=== PATIENT | female | born 1995 | race African-American/Black ===

== ENCOUNTER 2017-07-02 00:26 | Day surgery (SDC) | payer OTHER, SELFPAY ==
[2017-07-02 01:32] LABS: Bilirubin Negative (Negative); Blood, Urine Negative (Negative); Clarity CLEAR (Clear); Glucose, Urine (Dipstick) Negative (Negative); Leukocyte Negative (Negative); Nitrite Negative (Negative); Protein, Urine (Dipstick) Negative (Neg-Trace); Specific Gravity, Urine 1.008 (1.002-1.036)
[2017-07-02] MEDS ORDERED: Lactated Ringer's 1,000 ML IV SCH (01:45)
--- NOTE | 2017-07-02 01:55 | PDOC.EVN ---
Event Note - Event Note Event Note: L&D Triage Patient here for lower pelvic cramping at 22 weeks María COLÓN in [place], [place] HPI: 22 yo AA at 22 weeks by stated EDC of 10/31/17, maría COLÓN in [place] and is in process of moving here. She called to L&D for pelvic pain and was instructed to come here for eval. No ROM, no VB, no trauma, no recent sex. review of Systems: Complete ROS done and as per HPI Past med: PIH with first reg Past Surg: CS x1 Allergies: none Social: neg PHYSICAL: 130/82, 80, afebrile NAD No VB No evidence LOF FHTs 140s on monitor spot check OB sono in process now Labs pending Assessment and Plan: Suspect round lig pain. No evidence PTL or PCD at this time but sono pending for CHRISTIANO eval. We will get labs (CBC, CMP, urine) for now Sono in process If all ok, ok for outpatient care
--- NOTE | 2017-07-02 02:08 | PDOC.EVN ---
Event Note - Event Note Event Note: Present during sono: transabd sono reveals a cervix of about 4.2cm without evidence of funneling. UA is clear. Some of this discomfort may be round ligament and/or adhesions from prior CS. No evidence PTL. Doubt renal calculi as no blood in urine. CBC and CMP pending. IVF bolus pending.
[2017-07-02 03:02] LABS: #Basophils 0.1 thou/uL (0.0-0.2); #Eosinphils 0.3 thou/uL (0.0-0.7); #Lymphocytes 3.6 thou/uL (1.20-3.40); #Monocytes 1.1 thou/uL (0.11-0.59); #Neutrophils 9.8 thou/uL (1.40-6.50); %Basophils 0.5 % (0.0-1.0); %Eosinophils 2.2 % (0.0-10.0); %Lymphocytes 24.1 % (21.0-51.0); %Monocytes 7.3 % (0.0-10.0); %Neutrophils 65.9 % (42.0-75.0); Hemoglobin 11.3 g/dL (12.0-16.0); Mean Corpuscular HGB CONC 33.7 g/dL (32.0-36.0); Mean Corpuscular Hemoglobin 26.8 pg (27.0-31.0); Mean Corpuscular Volume 79.4 fl (81.0-99.0); Mean Platelet Volume 10.5 fL (7.4-10.4); Platelet Count 167 thou/uL (130-400); RBC Distribution Width 15.4 % (11.5-14.5); Red Blood Cell (RBC) Count 4.23 mill/uL (4.20-5.40); White Blood Cell (WBC) Count 14.8 thou/uL (4.8-10.8)
[2017-07-02 03:21] LABS: ALT (SGPT) 11 U/L (8-55); AST (SGOT) 13 U/L (5-34); Albumin 3.5 g/dL (3.5-5.0); Alkaline Phosphatase 107 U/L (40-150); Anion Gap 12 mmol/L (10-20); BUN (Urea Nitrogen) 5 mg/dL (7.0-18.7); Bilirubin, Total Less than 0.2 mg/dL (0.2-1.2); Calc. Creatinine Clearance 0 mL/min (70-130); Calcium 9.2 mg/dL (7.8-10.44); Carbon Dioxide 22 mmol/L (22-29); Chloride 106 mmol/L (98-107); Estimated GFR-MDRD Greater than 90; Globulin 3.4 g/dL (2.4-3.5); Glucose 105 mg/dL (70-105); Potassium 4.2 mmol/L (3.5-5.1); Protein, Total 6.9 g/dL (6.0-8.3); Sodium 136 mmol/L (136-145)
--- NOTE | 2017-07-02 03:42 | PDOC.EVN ---
Event Note - Event Note Event Note: Spiral CT note: Patient's labs have returned: CMP ok, CBC with isolated WBC of 14-15. I have evaluated her again at bedside...still states she has abdominal pain. To r/o appy, I will order spiral CT. I explained this to the patient. She understands.
--- NOTE | 2017-07-02 09:06 | ULT ---
PRELIMINARY REPORT/[facility]/EMERGENCY AFTER HOURS PROCEDURE: EXAM: US Transabd After First Trimester First Gest CLINICAL HISTORY: 22 years old, female; Pain; complicated by abdominal or pelvic pain; Lower; Second trimeste r; Gestational age or lmp: 22w5d; TECHNIQUE: Real-time ultrasound of the transabd after first trimester first gest with image documentat ion. COMPARISON: No relevant prior studies available. FINDINGS: A single intrauterine is present in breech presentation with estimated gestational age of 2 2 weeks 5 days. heart rate is measured at 153 bpm. The placenta is anterior, grade 1. The cervi x measures 4.8 cm. AMENA measures 12.7 cm. Nose/lips not well visualized. imaging is unremarkable . IMPRESSION Single intrauterine with estimated gestational age of 22 weeks 5 days. Thank you for allowing us to participate in the care of your patient. Dictated and Authenticated by: Fan Medellin MD 07/02/2017 2:30 AM Central Time ([place]) FINAL REPORT BY DR. CARTER EMERGENCY AFTER HOURS STUDY ULTRASOUND OBSTETRICAL COMPLETE: HISTORY: 22-year-old female experiencing pelvic and abdominal pain. FINDINGS: number: Almanzar. lie: Breech. Maternal cervix: 5 cm in length and closed. Placenta: Anterior. No placenta previa. No abruptio placentae. Amniotic fluid volume: AMENA = 12.5 cm. heart rate: 153 bpm The following anatomy is visualized, with no evidence of anomalies: Head, lateral ventricles, cerebellum, spine, upper limbs, lower limbs, four chamber heart, umbilical cord, cord insertion, stomach, kidneys, and bladder. The nose and lips are not well visualized. biometry: Head circumference (HC): 20.5 cm 22w 4d Biparietal diameter (BPD): 5.3 cm 22w 0d Abdominal circumference (AC): 18.9 cm 23w 5d Femur length (FL): 4.1 cm 23w 1d Average ultrasound age (AUA): 22w 5d Estimated date of delivery (NUNO): 10/31/2017 Last menstrual period (LMP): 01/24/2017 Gestational age by LMP: 22w 5d Estimated weight (EFW): 578 g +/- 86 g (1 lb 4 oz, +/- 3 oz) This report agrees with the preliminary report by Lupe. IMPRESSION: 1. Live second trimester intrauterine gestation. 2. Estimated gestational age of 22 weeks, 5 days. 3. Breech lie. 4. No anatomical abnormalities identified. 5. No evidence of complications. jn [] POS: CET
--- NOTE | 2017-07-02 09:44 | MRI ---
PRELIMINARY REPORT/[facility]/EMERGENCY AFTER HOURS PROCEDURE: EXAM: MR Abdomen Without Intravenous Contrast EXAM DATE/TIME: 07/02/2017 5:25 AM CLINICAL HISTORY: 22 years old, female; Pain; Abdominal pain; Acute; Additional info: R/O appy TECHNIQUE: Multiplanar magnetic resonance images of the abdomen without intravenous contrast. COMPARISON: No relevant prior studies available. FINDINGS: There is a mid term intrauterine gestation. The fetus is in the breech position. The placenta is anterior in position. No obvious or placental abnormalities. The maternal intestines are displaced by the gravid uterus. The ileocolic junction is identified. The appendix is identified and normal in caliber. No periappendiceal inflammatory changes. The visualized liver is normal in morphology and signal characteristics. No evidence abnormal signal or contrast enhancement. No evidence of biliary ductal dilatation. The gallbladder is unremarkable. The kidneys are normal in morphology and signal characteristics. No evidence of hydronephrosis. The soft tissues and bones of the body wall are normal in morphology and signal characteristics. IMPRESSION: No evidence for appendicitis. Thank you for allowing us to participate in the care of your patient. Dictated and Authenticated by: Mukund Hoffmann MD 07/02/2017 7:12 AM Central Time ([place]) FINAL REPORT MRI ABDOMEN: Date: 07/02/17 FINDINGS/IMPRESSION: I agree with the preliminary report provided by Lupe. Appendix is identified within the right lower q uadrant measuring up to 5.0 mm. No large amount of fluid is seen within the right lower quadrant to s uggest periappendiceal inflammatory change. There is a single liver intrauterine gestation in breech presentation. Placenta is anterior in location. Cervical length is 4.7 cm. The late term gestation do es displace multiple loops of bowel from the abdominal cavity. Visualized aspects of the bladder, rec len, and perirectal soft tissues are unremarkable. POS: TPC
--- NOTE | 2017-07-02 11:53 | PRG ---
DATE OF SERVICE: 07/02/2017 PRIMARY OB: Out of town; however the patient is planning on transferring care to her physician and determine here in the community. HISTORY OF PRESENT ILLNESS: The patient was admitted, evaluated here in labor and delivery for abdominal pain. She has been evaluated for concerns of appendicitis by MRI, which did not show any obvious signs can supporting appendicitis. The patient remains afebrile. Her white count that was mildly elevated, there is no left shift and on reevaluation and discussion of patient' s history. Her pain was most consistent with ligament pain, perhaps more severe than usual. PHYSICAL EXAMINATION: VITAL SIGNS: Currently, blood pressure 102/60, heart rate of 83, respiratory rate 18, and temperature 97.7. The patient is primarily tender in the left lower quadrant at this time and again most exacerbated with deviation of the uterus. Given a thorough evaluation and workup with no significant findings at this time , we have decided to discharge the patient Aaron Duckworth to home here in the community. She will be staying here for the foreseeable future. She is being given Tylenol No. 3 one to two tablets p.o. q.6 hours p.r.n. #15 for pain with instructions not to take regular Tylenol in conjunction with this, but perhaps to alternate her. The patient has also been counseled to find a primary CERTIFIED FLIGHT INSTRUCTOR here in the community for outpatient evaluation for followup here in the next week or so. The patient has also been given instructions to returned back to the emergency room should she experience fever, increasing pain , nausea, vomiting otherwise worsening symptoms. The patient is comfortable with this plan and has expressed understanding. VOLODYMYR
== END 2017-07-02 11:42 | disposition home or self-care (01) ==
LOC: ERS 00:26 → SDC/OP 01:42 → L&D/OP 11:42
PROVIDERS: ATTEND Obstetrics & Gynecology
DX: O99.89 Other specified diseases and conditions complicating pregnancy, childbirth and the puerperium (principal); R10.9 Unspecified abdominal pain; R10.2 Pelvic and perineal pain; Z3A.22 22 weeks gestation of pregnancy; Z98.891 History of uterine scar from previous surgery
CPT/HCPCS: 74181; 76805; 80053; 81003; 85025; 87086

== ENCOUNTER 2017-09-10 14:45 | Day surgery (SDC) | payer BC, MEDICAID ==
[2017-09-10 15:29] VITALS: BP 124/69; TEMP 99.5
--- NOTE | 2017-09-10 15:38 | PDOC.LDHP ---
Labor and Delivery H&P HPI: This is a 22yo @ 32.5 by LMP per patient presents for Elevated BP. She was seen at [facility] for her initial OB visit and was found to have SBP 140's so was sent over the [facility] for Pre-eclampsia workup. Yesterday she had an episode of dizziness and vision changes, however asymptomatic today. Due date: 10/31/17 Dating criteria: last menstrual period, other (Per patient as there are no records at this time to confirm this) Grav: 2 Para: 1 OB History Details: LTCS 2/2 Non-reassuring FHT's and failure to descend. Had maternal chorioamnionitis. Current complications: none Past Medical History: Asthma on albuterol PRN. Never been hospitalized in the past. Sickle cell trait Hx of GDM. Current medications: pre-mary vitamins Previous surgical history: low tranverse CS, other (ACL repair, umbilical hernia repair, tonsillectomy, LTCS) Social history: none - Physical Exam Vital signs reviewed and normal: yes General: NAD, resting Heart: RRR Lungs: nonlabored breathing Abdomen: NTTP Extremeties: no edema - OB Labs Blood type: A - Plan -: A/P: 1) Elevated Blood Pressure in clinic with concern for Pre-eclampsia - Will observe in L&D. F/u with labs of Urine Pr:Cr ratio, CBC, CMP, BPP, NST, AMENA and Growth. 2) IUP - Will need to request records from [facility]. 3) Hx of LTCS 4) GBS unknown 5) Asthma -Albuterol PRN 6) Sickle Cell Trait 7) Hx of Gestational DM and possibly HTN in . <Melissa Clark - Last Filed: 09/10/17 15:35> <Saroj Mina - Last Filed: 09/10/17 16:53> Allergies/Adverse Reactions: Allergies Allergy/AdvReac Type Severity Reaction Status Date / Time No Known Allergies Allergy Verified 07/02/17 06:25 Attending Addendum - Attending Addendum Date/Time: 09/10/17 1652 I personally evaluated the patient and discussed the management with Dr. PARK. I agree with and repeated the History, Examination, Assessment and Plan documented above with any addition or exceptions noted below. No headache/vision changes. Had what sounds like a migraine yesterday that resolved. No RUQ/LUBA pain. H/o gHTN last , unsure if converted to preE. Will await workup, so far reassuring status. Disposition pending labs and serial BP monitoring. Handoff to be given to Dr. Alston. <Saroj Mina - Last Filed: 09/10/17 16:53>
[2017-09-10 15:39] VITALS: BMI 37.9
[2017-09-10 16:05] LABS: Hemoglobin 11.5 g/dL (12.0-16.0); Mean Corpuscular HGB CONC 33.7 g/dL (32.0-36.0); Mean Corpuscular Hemoglobin 25.3 pg (27.0-31.0); Mean Platelet Volume 11.5 fL (7.4-10.4); Platelet Count 149 thou/uL (130-400); Red Blood Cell (RBC) Count 4.54 mill/uL (4.20-5.40); White Blood Cell (WBC) Count 13.3 thou/uL (4.8-10.8)
--- NOTE | 2017-09-10 16:06 | ULT ---
ULTRASOUND BIOPHYSICAL PROFILE: 09/10/17 HISTORY: 22-year-old female in third trimester of with pre-eclampsia. FINDINGS: breathin tone: 2 movement: 2 Amniotic fluid volume: 2 IMPRESSION: Normal biophysical profile score of 8/8, excluding the non-stress test. jn [] POS: TPC
[2017-09-10 16:22] LABS: MDiff Complete? YES
[2017-09-10 16:23] LABS: Anisocytosis SLIGHT = 6-15 cells (100X) (0-5/hpf); Band 4 % (5-11); Eosinophils 2 % (0-10); Hypochromia SLIGHT = 6-15 cells (100X) (0-5/hpf); Large Platelets SLIGHT; Lymphocytes 9 % (21-51); Microcytosis SLIGHT = 6-15 cells (100X) (0-5/hpf); Monocytes 7 % (0-10); Neutrophil 76 % (42-75); Ovalocytes SLIGHT = 2-5 cells (100X) (0-1/hpf); PLT Morphology Comment Appears Adequate; Polychromasia SLIGHT = 2-3 cells (100X) (0-2/hpf); Reactive Lymphocytes 2 % (0-10); Target Cells SLIGHT = 2-5 cells (100X) (0-1/hpf)
[2017-09-10 16:24] LABS: ALT (SGPT) 7 U/L (8-55); AST (SGOT) 15 U/L (5-34); Albumin 3.3 g/dL (3.5-5.0); Alkaline Phosphatase 139 U/L (40-150); Anion Gap 10 mmol/L (10-20); BUN (Urea Nitrogen) 6 mg/dL (7.0-18.7); Bilirubin, Total 0.2 mg/dL (0.2-1.2); Calc. Creatinine Clearance 215 mL/min (70-130); Calcium 9.3 mg/dL (7.8-10.44); Carbon Dioxide 21 mmol/L (22-29); Chloride 107 mmol/L (98-107); Estimated GFR-MDRD Greater than 90; Globulin 3.9 g/dL (2.4-3.5); Glucose 80 mg/dL (70-105); Potassium 3.9 mmol/L (3.5-5.1); Protein, Total 7.2 g/dL (6.0-8.3); Sodium 134 mmol/L (136-145)
--- NOTE | 2017-09-10 16:32 | ULT ---
ULTRASOUND OBSTETRICAL COMPLETE: DATE: 09/10/17. HISTORY: A 22-year-old female with preeclampsia. FINDINGS: number: Almanzar. lie: Vertex. Maternal cervix: 3 cm in length and closed. Placenta: Anterior. Amniotic fluid volume: AMENA of 13.3 cm. heart rate: 141 b.p.m. The following anatomy is visualized, with no evidence of anomalies: bladder, bilateral kidneys, stomach, and 4-chamber heart. The rest of the anatomy is poorly visualized because of third-trimester stage of . biometry: Head circumference (HC): 30.2 cm 33 w 4 d Biparietal diameter (BPD): 8.3 cm 33 w 1 d Abdominal circumference (AC): 28.8 cm 32 w 5 d Femur length (FL): 6.5 cm 33 w 2 d Average ultrasound age (AUA): 33 w 1 d Estimated date of delivery (NUNO): 10/28/17. Last menstrual period (LMP): 01/24/17. Gestational age by LMP: 32 w 5 d. Estimated weight (EFW): 2109 g +/- 312 g (4 lb, 10 oz +/- 11 oz). IMPRESSION: 1. Live 3rd trimester intrauterine gestation. 2. Estimated gestational age of 33 weeks, 1 days. 3. Cephalic lie. 4. Biophysical profile score of 8 out of 8, excluding the non-stress test.. ELOISE De Oliveira POS: TPC
[2017-09-10 17:26] LABS: Creatinine, Urine 212.67 mg/dL (47-110)
--- NOTE | 2017-09-10 18:06 | PDOC.EVN ---
Event Note - Event Note Event Note: Neg p/c ratio, reassuring labs, all BP's < 140/90, no severe symptoms, reassuring status. Ok for discharge. Discussed RT OBT warnings and patient voices understanding.
== END 2017-09-10 18:08 | disposition home or self-care (01) ==
LOC: L&D/OP 14:45
PROVIDERS: ATTEND Emergency Medicine
DX: O16.3 Unspecified maternal hypertension, third trimester (principal); O99.513 Diseases of the respiratory system complicating pregnancy, third trimester; J45.909 Unspecified asthma, uncomplicated; O99.113 Other diseases of the blood and blood-forming organs and certain disorders involving the immune mechanism complicating pregnancy, third trimester; D57.3 Sickle-cell trait; Z86.32 Personal history of gestational diabetes; Z79.899 Other long term (current) drug therapy; Z3A.32 32 weeks gestation of pregnancy
CPT/HCPCS: 36415; 59025; 76815; 76819; 80053; 82570; 84156; 85025; 99284

== ENCOUNTER 2017-10-06 18:38 | Day surgery (SDC) | payer BC, OTHER ==
[2017-10-06] MEDS ORDERED: Calcium Gluc 4.6 MEQ/10 ML (100 MG/ML) SLOW IVP PRN (19:31)
[2017-10-06] MEDS ORDERED: Sodium Chloride 0.9% 1,000 ML IV SCH (19:45)
--- NOTE | 2017-10-06 19:48 | PDOC.LDHP ---
Labor and Delivery H&P Chief complaint: other (light-headed, hot & dizzy) HPI: Patient comes in after feeling "hot and sweaty" at work today. She states she was feeling weak and like she was going to pass out. She did have one episode of vomiting and one episode of diarrhea today. She states she has been drinking plenty of fluids throughout the day today. She works at a [employer] center, and her employer called the ambulance to have her come in to be evaluated. She states she did have some blurry vision which lasted for a few moments, feeling fatigued , having sharp epigastric pain which comes and goes all day nothing makes it better or worse. Feeling baby move often. Not feeling contractions. No burning with urination or blood in the urine. She has had some thick discharge for one week or so, she is being treated with clotrimazole for a yeast infection. Current gestational age (weeks): 36 (36w3d) Due date: 10/31/17 Dating criteria: last menstrual period, other (US at 16w3d no records of first trimester US) Grav: 2 Para: 1 OB History Details: , first child was urgent C/S at 39wk2d 05/28 to arrest of labor with non- reassuring heart tones, chorioamnioits patient states she had gestation HTN which progressed to PreE, this is not noted in available records Current complications: gestational hypertension, other (sickle cell trait) Past Medical History: Asthma on albuterol PRN. Never been hospitalized in the past. Sickle cell trait Hx of GDM. Current medications: pre- vitamins Previous surgical history: low tranverse CS Allergies/Adverse Reactions: Allergies Allergy/AdvReac Type Severity Reaction Status Date / Time No Known Allergies Allergy Verified 07/02/17 06:25 Social history: none - Physical Exam Abnormal vital signs: BPs to the 140s and low 150s on arrival, now in the 120s systolic General: NAD Heart: RRR Lungs: nonlabored breathing Abdomen: NTTP Extremeties: no edema FHT: category 1 [place] contractions every: initially every 2 minutes, now spaced out, irregular - Vaginal Exam cm dilated: 1 Effacement: 25% Station: -3 - OB Labs Blood type: A RH: positive Antibody Screen: negative HIV: negative RPR: negative HEPSAg: negative GBS: negative Rubella: immune Additional Labs: gap in care from June until now, glucola for this week GC testing this trimester negative - Assessment 22yo F at 36w3d by LMP comes in for evaluation of N/V fatigue, r/o PIH - Plan -: # Reported history of PIH - plts, ast, alt WNL - prot/cr ratio 0.01 - BP in 120-lows 130s/70s - f/u with PCP, has appointment 10/12 - discussed reasons to return for evaluation including contractions >5 contractions per 10 min, bleeding, childers of fluids, fever, or change in pain. # Non-laboring - contractions spaced out - 05/15/3 at 1930, same at 2230 - irregular contractions, she is not feeling them # Epigastric pain - mildly improved since coming in - patient says it is bearable - non-tender to palpation - suggested patient to try some tums at home - U/A normal, recent GC swab negative - return for evaluation if the pain worsens or changes, f/u in clinic as needed
[2017-10-06 20:04] LABS: Hemoglobin 11.1 g/dL (12.0-16.0); Mean Corpuscular Volume 72.6 fl (81.0-99.0); Mean Platelet Volume 11.6 fL (7.4-10.4); Platelet Count 170 thou/uL (130-400); Red Blood Cell (RBC) Count 4.65 mill/uL (4.20-5.40); White Blood Cell (WBC) Count 12.7 thou/uL (4.8-10.8)
[2017-10-06 20:26] LABS: ALT (SGPT) 7 U/L (8-55); AST (SGOT) 10 U/L (5-34); Albumin 3.4 g/dL (3.5-5.0); Alkaline Phosphatase 162 U/L (40-150); Anion Gap 12 mmol/L (10-20); BUN (Urea Nitrogen) 6 mg/dL (7.0-18.7); Bilirubin, Total 0.2 mg/dL (0.2-1.2); Calc. Creatinine Clearance 0 mL/min (70-130); Calcium 9.4 mg/dL (7.8-10.44); Carbon Dioxide 22 mmol/L (22-29); Chloride 106 mmol/L (98-107); Estimated GFR-MDRD Greater than 90; Globulin 3.8 g/dL (2.4-3.5); Glucose 88 mg/dL (70-105); Potassium 3.8 mmol/L (3.5-5.1); Protein, Total 7.2 g/dL (6.0-8.3); Sodium 136 mmol/L (136-145)
[2017-10-06 21:16] LABS: Bilirubin Negative (Negative); Blood, Urine Negative (Negative); Clarity CLEAR (Clear); Glucose, Urine (Dipstick) Negative (Negative); Leukocyte Negative (Negative); Nitrite Negative (Negative); Protein, Urine (Dipstick) 30 mg/dL (Neg-Trace); Specific Gravity, Urine 1.024 (1.002-1.036)
[2017-10-06 21:19] LABS: Bacteria/HPF None Seen HPF (None Seen); Hyaline Casts/LPF 0-3 HYALINE CAST LPF (0-3 Hyaline); Pathc Cast-AUWi Flag 0.14 (0-2.49); WBC/HPF 0-3 HPF (0-3)
[2017-10-06 21:23] VITALS: BMI 38.4
[2017-10-06 21:31] LABS: RBC/HPF 0-3 HPF (0-3)
== END 2017-10-06 22:55 | disposition home or self-care (01) ==
LOC: L&D/OP 18:38
PROVIDERS: ATTEND Family Medicine
DX: O99.89 Other specified diseases and conditions complicating pregnancy, childbirth and the puerperium (principal); R11.2 Nausea with vomiting, unspecified; R53.83 Other fatigue; R10.13 Epigastric pain; R42 Dizziness and giddiness; Z3A.36 36 weeks gestation of pregnancy
CPT/HCPCS: 36415; 80053; 81003; 81015; 82570; 84156; 85027; 96360; 96361; 99284

== ENCOUNTER 2017-10-25 05:25 | Inpatient (IN) | payer BC, OTHER ==
[2017-10-25] MEDS ORDERED: Ondansetron HCl/PF 4 MG/2 ML Vial IVP PRN ×4 (06:52→10:36)
[2017-10-25] MEDS ORDERED: Promethazine HCl 25 MG/ML VIAL IM PRN ×2 (06:52→08:56)
[2017-10-25] MEDS ORDERED: Docusate 100 MG CAP PO PRN (06:52)
[2017-10-25] MEDS ORDERED: CEFAZOLIN/Water 2 GM/20 ML SYRINGE SLOW IVP SCH (07:00)
[2017-10-25] MEDS ORDERED: Bicitra 30 ML UDCUP PO SCH (07:00)
--- NOTE | 2017-10-25 07:02 | PDOC.LDHP ---
Addendum entered and electronically signed by Danie Paige MD 10/25/17 07:17 : FHT. Baseline 140. Moderate variability, present accel, no decel ctx q 8 min. Original Note: Labor and Delivery H&P Chief complaint: scheduled section HPI: 22 yo @ 39.1 by LMP/16.4 wk sono. Prior c/s. Mom and dad have sickle cell trait. presents for repeat c/s. No concerns. questions answered. Current gestational age (weeks): 39 Dating criteria: first trimester ultrasound Grav: 2 Current complications: other (lapse in care) Previous surgical history: low tranverse CS Social history: none - Physical Exam Vital signs reviewed and normal: yes General: NAD Heart: other Lungs: nonlabored breathing Abdomen: NTTP Extremeties: trace edema - OB Labs Blood type: A RH: positive Antibody Screen: negative HIV: negative RPR: negative HEPSAg: negative 1 hour GCT: negative GBS: negative Urine drug screen: not done Rubella: immune - Assessment L&D Assessment: scheduled repeat section - Plan Plan: admit to L&D (plan fo repeat c/s today. All questions answered.), to OR for section <Danie Paige - Last Filed: 10/25/17 07:00> <Maura Ortiz - Last Filed: 10/25/17 11:02> Allergies/Adverse Reactions: Allergies Allergy/AdvReac Type Severity Reaction Status Date / Time No Known Allergies Allergy Verified 10/25/17 06:30 Attending Addendum - Attending Addendum Date/Time: 10/25/17 1101 I personally evaluated the patient and discussed the management with Dr. Paige. I agree with the History, Examination, Assessment and Plan documented above with any addition or exceptions noted below. 22 year old at 39w presenting for scheduled elective . course complicated only by lapse in PNC and maternal and paternal sickle cell trait. <Marua Ortiz - Last Filed: 10/25/17 11:02>
[2017-10-25] MEDS ORDERED: Lidocaine 1% PF 5 ML VIAL ONE (07:07)
[2017-10-25] MEDS ORDERED: Morphine PF 1 MG/ML SYR ONE (07:07)
[2017-10-25] MEDS ORDERED: Oxytocin 10 UNITS/ML VIAL ONE ×2 (07:08→09:23)
[2017-10-25] MEDS ORDERED: Dexamethasone 4 mg/ml Vial ONE (07:08)
[2017-10-25] MEDS ORDERED: Bupivacaine 0.75% W/DEXTROSE 8.25% 2 ML AMP ONE (07:12)
[2017-10-25 07:17] LABS: Hemoglobin 11.1 g/dL (12.0-16.0); Mean Corpuscular HGB CONC 31.1 g/dL (32.0-36.0); Mean Corpuscular Hemoglobin 22.5 pg (27.0-31.0); Mean Corpuscular Volume 72.5 fL (78.0-98.0); Platelet Count 137 thou/uL (130-400); Red Blood Cell (RBC) Count 4.91 mill/uL (4.20-5.40); White Blood Cell (WBC) Count 13.1 thou/uL (4.8-10.8)
[2017-10-25 07:48] LABS: Hep B Surf Ag Non-Reactive S/CO (NonReactive); Syphilis Antibody Nonreactive (Nonreactive); Syphilis Antibody Index 0.05 S/CO (<1.00 Non-Reactive)
[2017-10-25] MEDS ORDERED: ePHEDrine/0.9% NaCl/PF SYRINGE 50 mg/10 ml ONE ×2 (08:17→14:33)
[2017-10-25] MEDS ORDERED: Fentanyl 100 MCG/2 ML VIAL ONE ×2 (08:49→09:09)
[2017-10-25] MEDS ORDERED: Midazolam HCl 2 mg/2 ml Vial ONE (08:50)
[2017-10-25] MEDS ORDERED: Ketorolac Tromethamine 30 MG/ML VIAL ONE ×3 (08:53→14:33)
[2017-10-25] MEDS ORDERED: HYDROmorphone 2 MG/ML VIAL SLOW IVP PRN (08:56)
[2017-10-25] MEDS ORDERED: Promethazine HCl 25 MG SUPP PR PRN (08:56)
[2017-10-25] MEDS ORDERED: Eucerin (Mineral Oil/Petrolatum,White) 30 gm Jar TOP PRN (08:56)
[2017-10-25] MEDS ORDERED: Naloxone HCl 0.4 mg/ml Vial IV PRN (08:56)
[2017-10-25] MEDS ORDERED: Meperidine HCl/PF 25 MG/ML VIAL SLOW IVP PRN (08:56)
[2017-10-25] MEDS ORDERED: diphenhydrAMINE 50 MG/ML VIAL IVP PRN (08:56)
[2017-10-25] MEDS ORDERED: Naloxone HCl 0.4 mg/ml Vial IVP PRN ×2 (08:56)
[2017-10-25] MEDS ORDERED: Communication Order-Pharmacy FS SCH (09:00)
[2017-10-25] MEDS ORDERED: Ketorolac Tromethamine 30 MG/ML VIAL IVP SCH (09:00)
[2017-10-25] MEDS ORDERED: diphenhydrAMINE 50 MG/ML VIAL ONE ×2 (09:17→14:33)
[2017-10-25] MEDS: Lactated Ringer's 1,000 ML IV SCH ×3 (10:00→23:49)
[2017-10-25] MEDS ORDERED: Lanolin Ointment 7 GM TUBE TOP PRN (10:36)
[2017-10-25] MEDS ORDERED: Adacel (T-DAP) 0.5 ML VIAL IM ONE (10:36)
[2017-10-25] MEDS ORDERED: Acetaminophen 325 MG TAB PO PRN (10:36)
[2017-10-25 10:54] VITALS: BMI 39.4
--- NOTE | 2017-10-25 10:58 | OP-2 ---
DATE OF PROCEDURE: 10/25/2017 LOCATION: [place], [place] PRIMARY SURGEON: Dr. David Peña [employer]IN[employer] MECH[employer]IC RESIDENT SURGEON: Dr. Danie Paige ATTENDING SURGEON: Dr. Maura Ortiz PROCEDURE: Repeat low transverse section. PREOPERATIVE DIAGNOSES: 1. Term intrauterine . 2. Previous . POSTOPERATIVE DIAGNOSES: 1. Term intrauterine , delivered. 2. Repeat low transverse section. ANESTHESIA: Spinal epidural. INDICATIONS: The patient is a 22-year-old G2, P0-1-0-1, now 2 female at 39 and 1 weeks by LMP and 16 .4 weeks sono who presented for repeat scheduled section. After risks, benefits, and alternatives were explained to the patient, she gave informed consent. Pr eoperative antibiotics included cefazolin 2 grams IV. The patient was taken to the operating room an d spinal anesthesia was initiated. She was placed in the supine position with a left lateral tilt an d prepped and draped in the usual sterile fashion. A Pfannenstiel incision was made with a scalpel a nd carried down to the level of the fascia which was sharply nicked. The fascial cut was extended bi laterally with Allred scissors. The inferior and superior edges of the cut fascial edges were elevated with Hilario clamps and underlying rectus muscles were bluntly dissected free. The recti were divide d digitally and retracted manually. The peritoneum was entered bluntly and retracted manually. Maikel is O retractor was then placed. A low transverse score was made on the uterus with a scalpel and the uterus was entered in the midline with the scalpel. Meconium-stained fluid was seen. The hysteroto my was extended manually. The was noted to be vertex and was easily delivered by fundal press ure. The mouth and nares were bulb suctioned. Cord clamped and cut and grossly normal male infant w as handed to the waiting nurse. Cord blood was obtained. Placenta was manually extracted and found to be intact with 3-vessel cord and discarded. The uterus was externalized and the endometrium was c uretted with a dry lap. The Louis O remained in place and the uterus was closed with a running lock ing 0 Vicryl suture. Following this, hemostasis was noted. The abdomen was suctioned and no bleedin g was noted. The gutters were clear. Following this, the uterus was internalized and the hysterotom y was again noted to be hemostatic. The fascia was closed with a running nonlocking 0 Vicryl suture. The subcutaneous tissue was irrigated and the bleeders were cauterized. At this point, hemostasis was again noted. The skin was approximated with 4-0 Monocryl suture in a subcuticular fashion. A pr essure dressing was placed. All counts were correct. The patient tolerated the procedure well and w as taken to recovery room in stable condition. ESTIMATED BLOOD LOSS: 600 mL. COMPLICATIONS: None. SPECIMENS: Cord blood sent to the lab for blood type. FINDINGS: Grossly normal male with Apgars of 8 and 8 at 1 and 5 minutes, respectively. Grossly normal placenta with three-vessel cord was discarded. DRAINS: Lemons to gravity draining clear urine.
[2017-10-25] MEDS ORDERED: Dexamethasone 20 MG/5 ML VIAL ONE (14:33)
[2017-10-25] MEDS: Ibuprofen 800 MG TAB PO SCH ×2 (14:40→22:49)
[2017-10-25] MEDS: Ketorolac Tromethamine 30 MG/ML VIAL IVP PRN ×2 (16:17→23:45)
[2017-10-25] MEDS: Docusate Calcium (SURFAK) 240 MG CAP PO SCH (22:48)
[2017-10-26 05:33] LABS: Hemoglobin 8.8 g/dL (12.0-16.0); Mean Corpuscular HGB CONC 32.6 g/dL (32.0-36.0); Mean Corpuscular Hemoglobin 23.4 pg (27.0-31.0); Mean Corpuscular Volume 71.9 fL (78.0-98.0); Platelet Count 123 thou/uL (130-400); RBC Distribution Width 16.6 % (11.5-14.5); Red Blood Cell (RBC) Count 3.74 mill/uL (4.20-5.40); White Blood Cell (WBC) Count 15.5 thou/uL (4.8-10.8)
[2017-10-26] MEDS: Ibuprofen 800 MG TAB PO SCH ×3 (06:28→21:31)
[2017-10-26] MEDS: HYDROcodone/Acetaminophen 5/325 mg Tablet PO PRN ×4 (06:28→19:45)
[2017-10-26] MEDS: Lactated Ringer's 1,000 ML IV SCH ×3 (08:43→22:32)
--- NOTE | 2017-10-26 08:43 | PDOC.PP ---
Post Progress Note Post Day #: 1 Subjective: Patient is a 22 yo F who delivered at 39.1wks via rLTCS on 10/25/17. Today patient reports minimal-moderate abdominal pain. She is ambulating well, passing flatus, and voiding. She is still on liquid diet and is asking when she can eat solids. She is baby successfully. She has no other concerns. PO intake tolerated: no Flatus: yes Ambulation: yes Vital Signs (12 hours) Temp Pulse Resp BP 10/26/17 08:00 98.6 F 89 20 10/26/17 07:48 98.6 F 89 20 115/55 L 10/26/17 04:40 98.8 F 105 H 20 10/25/17 23:40 99.1 F 85 20 107/58 L Weight Weight 104.326 kg - Physical Examination General: NAD Cardiovascular: no m/r/g, RRR Respiratory: clear to auscultation bilaterally, non-labored breathing Abdominal: + bowel sounds, lochia (minimal), appropriately TTP (lower abdominal pain along incision) Skin: CS incision dry & intact Neurological: no gross focal deficits Psychiatric: normal affect Result Diagrams: 10/26/17 04:46 Additional Labs: Post Labs Blood Type A POSITIVE 10/25/17 06:10 Hep Bs Antigen Non-Reactive S/CO (NonReactive) 10/25/17 06:10 (1) S/P repeat low transverse Code(s): Z98.891 - HISTORY OF UTERINE SCAR FROM PREVIOUS SURGERY Status: Acute - Assessment/Plan Patient is a 22 yo F who delivered via rLTCS at 39.1wks, she is post day 1. 1. Repeat Low Transverse - advance diet as tolerated - pain control abdominal pain with Farson - if she continues to recover well plan for discharge tomorrow 2. Anemia secondary to acute blood loss - iron supplementation and bowel regimen - continue to monitor vitals and repeat CBC if vitas become abnormal <Kinjal Kessler - Last Filed: 10/26/17 09:30> Vital Signs (12 hours) Temp Pulse Resp BP 10/26/17 08:00 98.6 F 89 20 10/26/17 07:48 98.6 F 89 20 115/55 L 10/26/17 04:40 98.8 F 105 H 20 Weight Weight 104.326 kg Result Diagrams: 10/26/17 04:46 Additional Labs: Post Labs Blood Type A POSITIVE 10/25/17 06:10 Hep Bs Antigen Non-Reactive S/CO (NonReactive) 10/25/17 06:10 <Maura Ortiz - Last Filed: 10/26/17 11:53> Attending Addendum - Attending Addendum Date/Time: 10/26/17 1150 I personally evaluated the patient and discussed the management with Dr. Kessler I agree with the History, Examination, Assessment and Plan documented above with any addition or exceptions noted below. 22 yo POD # 1 s/p uncomplicated RLTCS Doing well today. Urine output has been adequate over last 24hrs. Voiding spontaneously. Eating/drinking/ambulating without difficulty. Continue routine postop care. Anticipate d/c to home on POD #2or3 <Maura Ortiz - Last Filed: 10/26/17 11:53>
[2017-10-26] MEDS: Docusate Calcium (SURFAK) 240 MG CAP PO SCH ×2 (10:26→21:31)
[2017-10-26] MEDS: Prenatal Vitamin 1 TAB PO SCH (10:26)
[2017-10-26] MEDS ORDERED: HYDROcodone/Acetaminophen 5/325 mg Tablet PO PRN (19:47)
[2017-10-27] MEDS: Simethicone Chewable 80 MG TAB PO PRN ×2 (00:50→06:25)
--- NOTE | 2017-10-27 05:47 | PDOC.PP ---
Post Progress Note Post Day #: 2 Subjective: Patient is a 22 yo F who delivered a baby boy via rLTCS on 10/25/17. EBL 650mL. Bottle and . Patient is eating, voiding, passing flatus, and ambulating well with minimal pain. Her pain is being controlled with ibuprofen and [place]. She denies any other symptoms such as fever, headache, or vision changes. Patient has no other concerns at this time. PO intake tolerated: yes Flatus: yes Ambulation: yes Vital Signs (12 hours) Temp Pulse Resp BP 10/27/17 03:32 98.1 F 89 20 127/68 10/27/17 00:40 97.7 F 88 18 141/70 H 10/26/17 19:45 98.5 F 91 18 134/71 10/26/17 17:53 98.5 F 88 16 125/71 Weight Weight 104.326 kg - Physical Examination General: NAD Cardiovascular: no m/r/g, RRR Respiratory: clear to auscultation bilaterally, non-labored breathing Abdominal: + bowel sounds, lochia (minimal), appropriately TTP Skin: CS incision dry & intact Psychiatric: A&Ox3, normal affect Result Diagrams: 10/26/17 04:46 Additional Labs: Post Labs Blood Type A POSITIVE 10/25/17 06:10 Hep Bs Antigen Non-Reactive S/CO (NonReactive) 10/25/17 06:10 (1) S/P repeat low transverse Code(s): Z98.891 - HISTORY OF UTERINE SCAR FROM PREVIOUS SURGERY Status: Acute - Assessment/Plan Patient is a 22 yr old F who delivered a baby boy on 10/25/17 via rLTCS. She continues to recover well and only complains of minimal abdominal pain controlled with pain medication. The plan is to discharge her later today. 1. Repeat Low Transverse - Plan to discharge later today - continue pain medication for abdominal pain - continue vitamins - follow up at [facility] clinic in 2 weeks 2. Anemia secondary to acute blood loss - iron supplementation and bowel regimen to continue at home <Kinjal Kessler - Last Filed: 10/27/17 07:18> Vital Signs (12 hours) Temp Pulse Resp BP 10/27/17 07:50 99.0 F 91 20 10/27/17 07:47 99.0 F 91 20 133/78 10/27/17 03:32 98.1 F 89 20 127/68 10/27/17 00:40 97.7 F 88 18 141/70 H Weight Weight 104.326 kg Result Diagrams: 10/26/17 04:46 Additional Labs: Post Labs Blood Type A POSITIVE 10/25/17 06:10 Hep Bs Antigen Non-Reactive S/CO (NonReactive) 10/25/17 06:10 <Maura Ortiz - Last Filed: 10/27/17 09:34> Attending Addendum - Attending Addendum Date/Time: 10/27/17 0932 I personally evaluated the patient and discussed the management with Dr. Kessler I agree with the History, Examination, Assessment and Plan documented above with any addition or exceptions noted below. 1. Stable POD #2. Meeting all appropriate postoperative milestones. Pt requesting d/c to home today. Routine counseling completed. 2. Acute blood loss anemia superimposed on chronic anemia of . Asymptomatic. To be d/yudy on PO iron <Maura Ortiz - Last Filed: 10/27/17 09:34>
[2017-10-27] MEDS: Ibuprofen 800 MG TAB PO SCH (06:11)
[2017-10-27 07:48] VITALS: BP 133/78; TEMP 99
[2017-10-27] MEDS: HYDROcodone/Acetaminophen 5/325 mg Tablet PO PRN (07:53)
[2017-10-27] MEDS: Docusate Calcium (SURFAK) 240 MG CAP PO SCH (07:53)
[2017-10-27] MEDS: Prenatal Vitamin 1 TAB PO SCH (07:53)
== END 2017-10-27 12:50 | disposition home or self-care (01) | DRG 765 ==
LOC: L&D 05:25 → 3SW 12:37
PROVIDERS: ADMIT Family Medicine; ATTEND Family Medicine
PROC: 10D00Z1 Extraction of Products of Conception, Low, Open Approach (ICD-10-PCS; principal; 2017-10-25)
DX: O34.211 Maternal care for low transverse scar from previous cesarean delivery (principal); D62 Acute posthemorrhagic anemia; N85.8 Other specified noninflammatory disorders of uterus; Z3A.39 39 weeks gestation of pregnancy; Z37.0 Single live birth; O99.02 Anemia complicating childbirth; D57.3 Sickle-cell trait; O99.03 Anemia complicating the puerperium
CPT/HCPCS: 36415; 51702; 85027; 86780; 86850; 86900; 86901; 87340; J1100; J1200; J1885; J2001; J2250; J2274; J2590; J3010; J3490

== ENCOUNTER 2018-04-02 10:43 | Emergency (ER) | payer BC, MEDICAID, SELFPAY ==
[2018-04-02 11:38] LABS: Bilirubin Negative (Negative); Blood, Urine Large (Negative); Clarity CLOUDY (Clear); Glucose, Urine (Dipstick) Negative (Negative); Leukocyte Small (Negative); Nitrite Negative (Negative); Protein, Urine (Dipstick) Trace mg/dL (Neg-Trace); Urobilinogen 0.2 mg/dL (0.2-1.0)
[2018-04-02 11:41] LABS: Bacteria/HPF Rare-Few HPF (None Seen); Hyaline Casts/LPF 0-3 HYALINE CAST LPF (0-3 Hyaline); Pregnancy Test - Urine (BHCG) Negative (Negative); Pregu Control Background? CLEAR/WHITE (CLR/WHITE); Pregu Control Bar Appear? YES (CONTROL BAR); RBC/HPF GREATER THAN 50-TNTC HPF (0-3)
--- NOTE | 2018-04-02 11:48 | RAD ---
TWO VIEWS CHEST: DATE: 04/02/2018. PROVIDED CLINICAL HISTORY: Cough. COMPARISON: 01/31/2017. FINDINGS: Cardiac and mediastinal silhouette is within normal limits. Lungs appear clear. No pleural fluid or pneumothorax apparent. IMPRESSION: No evidence for an acute cardiopulmonary process. POS: [facility]
[2018-04-02 11:58] LABS: ALT (SGPT) 20 U/L (8-55); AST (SGOT) 18 U/L (5-34); Albumin 4.2 g/dL (3.5-5.0); Alkaline Phosphatase 129 U/L (40-150); Anion Gap 13 mmol/L (10-20); BUN (Urea Nitrogen) 10 mg/dL (7.0-18.7); Bilirubin, Total 0.4 mg/dL (0.2-1.2); Calc. Creatinine Clearance 0 mL/min (70-130); Calcium 9.6 mg/dL (7.8-10.44); Carbon Dioxide 23 mmol/L (22-29); Chloride 107 mmol/L (98-107); Estimated GFR-MDRD 86; Glucose 119 mg/dL (70-105); Protein, Total 8.2 g/dL (6.0-8.3); Sodium 139 mmol/L (136-145)
[2018-04-02 12:02] LABS: #Basophils 0.1 thou/uL (0.0-0.2); #Eosinphils 0.5 thou/uL (0.0-0.7); #Lymphocytes 2.7 thou/uL (1.20-3.40); %Basophils 0.6 % (0.0-1.0); %Eosinophils 4.6 % (0.0-10.0); %Monocytes 9.1 % (0.0-10.0); %Neutrophils 61.8 % (42.0-75.0); Hemoglobin 12.9 g/dL (12.0-16.0); MDiff Complete? YES; Mean Corpuscular HGB CONC 32.3 g/dL (32.0-36.0); Mean Corpuscular Hemoglobin 23.4 pg (27.0-31.0); Mean Corpuscular Volume 72.5 fL (78.0-98.0); Mean Platelet Volume 11.3 fL (7.4-10.4); Microcytosis SLIGHT = 6-15 cells (100X) (0-5/hpf); Platelet Count 267 thou/uL (130-400); RBC Distribution Width 14.9 % (11.5-14.5); Red Blood Cell (RBC) Count 5.52 mill/uL (4.20-5.40); White Blood Cell (WBC) Count 11.3 thou/uL (4.8-10.8)
[2018-04-02] MEDS ORDERED: Ibuprofen 800 MG TAB ONE (12:35)
[2018-04-02] MEDS ORDERED: cefTRIAXone\\ROCEPHIN 250 MG VIAL ONE (13:18)
[2018-04-02] MEDS ORDERED: Lidocaine 1% (PF) 30 ML VIAL ONE (13:18)
[2018-04-02] MEDS ORDERED: Azithromycin 250 MG TAB ONE (13:18)
== END 2018-04-02 13:31 | disposition home or self-care (01) ==
LOC: ERS 10:43
DX: N72 Inflammatory disease of cervix uteri (principal); N39.0 Urinary tract infection, site not specified; J06.9 Acute upper respiratory infection, unspecified; I10 Essential (primary) hypertension; J45.909 Unspecified asthma, uncomplicated; F41.9 Anxiety disorder, unspecified
CPT/HCPCS: 36415; 71046; 80053; 81003; 81015; 81025; 85025; 96372; J0696; J2001